=== PATIENT | male | born 1950 | race Caucasian/White ===

== ENCOUNTER 2020-03-18 08:59 | Outpatient (CLI) | payer MEDICARE, MEDICAID ==
[~2020-03-18 08:59] MED LIST: ACET325T26 PO; BACL20TA PO; BUPR75TA6 PO; CAPS42.514 TP; DARU800T2 PO; DOCU240C53 PO; ELVI1TAB3 PO; FAMO-79 PO; GABA600T7 PO; LIDO700A20 TD; MAGN420T PO
[2020-03-18] MEDS ORDERED: GADOTERATE 10 MMOL/20 ML VIAL ONE (09:15)
== END 2020-03-18 23:59 | disposition home or self-care (01) ==
LOC: RAD 08:59 → EDSTATUS 09:15 → RAD 23:59
PROVIDERS: ATTEND Specialist
DX: M47.26 Other spondylosis with radiculopathy, lumbar region (principal); M51.16 Intervertebral disc disorders with radiculopathy, lumbar region; N28.1 Cyst of kidney, acquired; I71.9 Aortic aneurysm of unspecified site, without rupture
CPT/HCPCS: 72158; A9575